=== PATIENT | female | born 1970 | race Caucasian/White ===

== ENCOUNTER 2019-07-27 11:42 | Emergency (ER) | payer BC, SELFPAY ==
[2019-07-27 12:10] LABS: Basophils % 0.1 %; Eosinophils # 0.4 10^3/uL (0.0-0.8); Eosinophils % 4.7 %; Hematocrit 47.3 % (37.0-47.0); Hemoglobin 14.7 g/dL (11.5-15.3); Lymphocytes # 2.5 10^3/uL (0.8-4.8); Lymphocytes % 33.1 %; Mean Corpuscular HGB Conc 31.1 g/dL (30.0-36.0); Mean Corpuscular Hemoglobin 29.6 pg (28.0-34.0); Mean Corpuscular Volume 95.4 fL (81-99); Mean Platelet Volume 9.1 fL (7.4-10.4); Monocytes # 0.3 10^3/uL (0.2-0.9); Monocytes % 4.5 %; Neutrophils # 4.4 10^3/uL (1.8-7.7); Neutrophils % 57.5 %; Nucleated Red Blood Cells % 0 %; Platelet Count 251 10^3/cmm (130-400); Red Blood Count 4.96 10^6/uL (4.1-5.3); Red Cell Distribution Width 13.7 % (12.1-15.1); White Blood Count 7.6 10^3/uL (4.0-10.0)
[2019-07-27 12:15] VITALS: BP 118/81; PULSE 77; RESP 18; TEMP 36.7; O2SAT 98; BMI 39.9
[2019-07-27 12:28] LABS: Alanine Aminotransferase 24 U/L (0-33); Albumin Level 4.1 g/dL (3.5-5.2); Alkaline Phosphatase 92 IU/L (35-105); Anion Gap 15.2 (5-19); Aspartate Amino Transferase 19 U/L (0-32); Blood Urea Nitrogen 17 mg/dL (6-20); Calcium 9.5 mg/dL (8.5-10.5); Carbon Dioxide 23 mmol/L (22-29); Chloride 103 mmol/L (98-107); Glomerular Filtration Rate 88.9 mL/min (90-130); Glucose 110 mg/dL (65-115); Lipase 23 U/L (13-60); Potassium 4.2 mmol/L (3.5-5.1); Sodium 137 mmol/L (136-145); Total Bilirubin 0.2 mg/dL (0.15-1.2); Total Protein 7.1 g/dL (6.6-8.7)
[2019-07-27 12:53] LABS: Add Urine Microscopic? YES; Bilirubin Urine Neg (NEGATIVE); Blood Urine Neg (Negative); Glucose Urine UA Norm (Normal); Ketones Urine Negative (Negative); Leukocyte Esterase Urine Trace (Negative); Nitrate Urine Negative (Negative); Protein Urine Neg (Negative); Urine Appearance Clear (CLEAR); Urine Color Yellow (Yellow); Urobilinogen Urine Norm (Negative)
[2019-07-27 13:04] LABS: Bacteria Urine TRACE; Mucus Urine 2+; Squamous Epithelial Cell Urine 15-25 (0-5); WBC Urine 0-4 /hpf (0-5)
[2019-07-27 13:05] LABS: Add Urine Culture? No
--- NOTE | 2019-07-27 13:08 | ED_ITS ---
Entered by Yara Gonsales, acting as scribe for Jessica Voss MD Jul 27, 2019 11:42 HPI - Abdominal Pain General: Chief Complaint: Abdominal Pain Stated Complaint: flank pain, nausea, abd pain Time Seen by Provider: 07/27/19 13:03 Source: patient and family Mode of arrival: ambulatory Limitations: no limitations History of Present Illness: MD elicited complaint: abdominal pain and flank pain Pertinent past history: other (pancreatitis ) Pain Consistency: constant Location: LLQ and L flank Severity: moderate Quality: sharp Radiation: L flank and back Exacerbating factors: nothing Relieving factors: nothing Associated Symptoms: Denies chills, diarrhea, dysuria, fever(s), nausea and vomiting Review of Systems Const: Denies: fever, chills, body aches or change in appetite Eyes: Denies: blurry vision or eye discomfort ENMT: Denies: throat pain or dental pain Card: Denies: chest pain Resp: Denies: shortness of breath GI: Reports: abdominal pain; Denies: nausea, vomiting or diarrhea : Denies: painful urination Musc: Denies: neck pain or back pain Skin/Breast: Denies: rash Neuro: Denies: headache Psych: Denies: depression [place]/Lymph: Denies: easy bruising All/Imm: Denies: hives PFSH ED PFSH: Social History Smoking and tobacco status: current every day smoker cigarettes Packs smoked per day: 0.5 Alcohol intake: never Physical Exam Const: COMMON NORMALS: no apparent distress, oriented x3 and healthy appearing HENMT: COMMON NORMALS: normocephalic and head/scalp atraumatic HEAD & SC ALP: normocephalic and atraumatic Eye: COMMON NORMALS: PERRL and EOMs intact bilaterally PUPIL: Yes PERRL Neck/C-Spine: COMMON NORMALS: full ROM and supple Chest: COMMONS NORMALS: inspection of chest normal and palpation of chest normal Resp: COMMON NORMALS: normal respiratory effort, no retractions, no use of accessory muscles and clear to auscultation bilaterally AUSCULTATION: clear to auscultation bilaterally Cardio: COMMON NORMALS: regular rate, regular rhythm and no murmurs RATE: regular rate RHYTHM: regular rhythm GI: COMMON NORMALS: normal to inspection, nondistended, normoactive bowel sounds, soft to palpation, non-tender and no masses PALPATION: Yes soft Extremity: COMMON NORMALS: normal to inspection and full ROM Neuro: COMMON NORMALS: oriented x3, moves all extremities and no focal motor deficits Psych: COMMON NORMALS: mental status grossly normal, thought process normal and cooperative THOUGHT PROCESS: normal thought process Skin: COMMON NORMALS: no rashes or lesions noted and no wounds GENERAL SKIN EXAM: no rashes or lesions noted Course Vital Signs: Vital signs: Vital Signs Temperature 98.1 F 07/27/19 12:15 Pulse Rate 76 07/27/19 14:55 Respiratory Rate 17 07/27/19 14:55 Blood Pressure 136/91 07/27/19 14:55 Pulse Oximetry 99 07/27/19 14:55 MDM - Abdominal Pain MDM Narrative: Medical decision making narrative: Patient presents with abdominal pain has chronic abdominal pain from previous pancreatitis. Patient's lipase and CT scan here is normal besides a fat-containing hernia that could be causing her pain. Her pain is much improved here and exam at discharge is benign. She is stable for discharge and is to follow-up with primary care doctor in 3 to 5 days return if worsening. Lab Data: Labs: Lab Results 07/27/19 07/27/19 07/27/19 Range/Units 12:00 12:00 12:33 WBC 7.6 (4.0-10.0) 10^3/ uL RBC 4.96 (4.1-5.3) 10^6/u L Hgb 14.7 (11.5-15.3) g/dL Hct 47.3 H (37.0-47.0) % MCV 95.4 (81-99) fL MCH 29.6 (28.0-34.0) pg MCHC 31.1 (30.0-36.0) g/dL RDW 13.7 (12.1-15.1) % Plt Count 251 (130-400) 10^3/c mm MPV 9.1 (7.4-10.4) fL Neut % (Auto) 57.5 % Lymph % (Auto) 33.1 % Cocke % (Auto) 4.5 % Eos % (Auto) 4.7 % Baso % (Auto) 0.1 % Neut # (Auto) 4.4 (1.8-7.7) 10^3/u L Lymph # (Auto) 2.5 (0.8-4.8) 10^3/u L Cocke # (Auto) 0.3 (0.2-0.9) 10^3/u L Eos # (Auto) 0.4 (0.0-0.8) 10^3/u L Baso # (Auto) 0.0 (0.0-0.1) 10^3/u L Nucleated RBC % (a uto) 0 % Nucleated RBCs # 0.0 /100WBC Sodium 137 (136-145) mmol/L Potassium 4.2 (3.5-5.1) mmol/L Chloride 103 (98-107) mmol/L Carbon Dioxide 23 (22-29) mmol/L Anion Gap 15.2 (5-19) BUN 17 (6-20) mg/dL Creatinine 0.7 (0.5-0.9) mg/dL GFR Calculation 88.9 L (90-130) mL/min Glucose 110 (65-115) mg/dL Calcium 9.5 (8.5-10.5) mg/dL Total Bilirubin 0.2 (0.15-1.2) mg/dL AST 19 (0-32) U/L ALT 24 (0-33) U/L Alkaline Phosphata se 92 (35-105) IU/L Total Protein 7.1 (6.6-8.7) g/dL Albumin 4.1 (3.5-5.2) g/dL Globulin 3.0 (1.3-4.6) g/dL Lipase 23 (13-60) U/L Urine Color Yellow (Yellow) Urine Appearance Clear (CLEAR) Urine pH 5.0 (5-7) Ur Specific Gravit y 1.020 (1.005-1.030) Urine Protein Neg (Negative) Urine Glucose (UA) Norm (Normal) Urine Ketones Negative (Negative) Urine Blood Neg (Negative) Urine Nitrate Negative (Negative) Urine Bilirubin Neg (NEGATIVE) Urine Urobilinogen Norm (Negative) mg/dL Ur Leukocyte Christiane ase Trace H (Negative) Urine RBC None (0-2) /hpf Urine WBC 0-4 H (0-5) /hpf Ur Squamous Epith Cells 15-25 H (0-5) Urine Bacteria Trace (NONE) Urine Mucus 2+ Imaging Data ^: CT Abd/Pel: Radiologist's impression: Ordering Provider/Ordering MD: Jessica Voss MD Date of Service: 07/27/19 Procedure(s): CT abdomen pelvis w con* [id number] Accession Number(s): [id number] Report Number: [id number] PROCEDURE INFORMATION: Exam: CT Abdomen And Pelvis With Contrast Exam date and time: 07/27/2019 1:23 PM Age: 48 years old Clinical indication: Abdominal pain; Periumbilical; Prior surgery; Surgery type: Gb; Patient HX: Kiesha-umbilical and left abd pain TECHNIQUE: Imaging protocol: Computed tomography of the abdomen and pelvis with intravenous contrast. Total DLP: 1852.49 mGy-cm Radiation optimization: All CT scans at this facility use at least one of these dose optimization techniques: automated exposure control; mA and/or kV adjustment per patient size (includes targeted exams where dose is matched to clinical indication); or iterative reconstruction. Contrast material: OMNI 300; Contrast volume: 95 ml; Contrast route: 20G; COMPARISON: No relevant prior studies available. FINDINGS: Liver: Normal. No mass. Gallbladder and bile ducts: Surgical clips in the gallbladder fossa consistent with cholecystectomy. Pancreas: Normal. No ductal dilation. Spleen: Normal. No splenomegaly. Adrenals: Normal. No mass. Kidneys and ureters: Normal. No hydronephrosis. Stomach and bowel: Moderate diverticulosis. Appendix: Normal appendix. Intraperitoneal space: Unremarkable. No free air. No significant fluid collection. Vasculature: Unremarkable. No abdominal aortic aneurysm. Lymph nodes: Unremarkable. No enlarged lymph nodes. Bladder: Unremarkable as visualized. Reproductive: Unremarkable as visualized. Bones/joints: Unremarkable. No acute fracture. Soft tissues: Umbilical/periumbilical hernia containing fat. CT/CT abdomen pelvis w con* [id number] IMPRESSION: 1. Umbilical/periumbilical hernia containing fat. 2. Moderate diverticulosis. Discharge Plan Discharge Patient Disposition: Home, Self-Care Clinical Impression: Abdominal pain Qualifiers: Abdominal location: generalized Qualified Code(s): R10.84 - Generalized abdominal pain Condition: Stable Prescriptions: [place] 5-325 mg tablet 1 tab PO Q6H PRN (Reason: pain) Qty: 10 RF: 0 No Action famotidine 20 mg tablet 20 mg PO DAILY RF: 0 ascorbate calcium (vitamin C) 500 mg tablet 500 mg PO DAILY RF: 0 vitamin B complex [B Complex-Vitamin B12] Tablet 1 tab PO DAILY RF: 0 ranitidine HCl 150 mg Tablet 300 mg PO ONCE RF: 0 naproxen sodium 220 mg Tablet 440 mg PO ONCE RF: 0 Discharge Orders: Discharge Order (Routine); Ordered 07/27/19 Ordered By: Jessica Voss Referrals: Gary Burton DO [Primary Care Provider] - 4-7 days Discharge Diet: Advance as tolerated Discharge Activity: Resume usual activity Patient Instructions: Abdominal Pain (ED) Discharge Date/Time: 07/27/19 14:47 Coding Level of Care Code ED [employer] for Chg Fwd Exam Comprehensive The documentation recorded by the Dru back Bridget Annette, accurately reflects the service I personally performed and the decisions made by Bipin jacobs Korby, MD Jul 27, 2019 11:42
[2019-07-27 13:10] VITALS: RESP 17
--- NOTE | 2019-07-27 13:21 | CTR_ITS ---
PROCEDURE INFORMATION: Exam: CT Abdomen And Pelvis With Contrast Exam date and time: 07/27/2019 1:23 PM Age: 48 years old Clinical indication: Abdominal pain; Periumbilical; Prior surgery; Surgery type: Gb; Patient HX: Kiesha-umbilical and left abd pain TECHNIQUE: Imaging protocol: Computed tomography of the abdomen and pelvis with intravenous contrast. Total DLP: 1852.49 mGy-cm Radiation optimization: All CT scans at this facility use at least one of these dose optimization techniques: automated exposure control; mA and/or kV adjustment per patient size (includes targeted exams where dose is matched to clinical indication); or iterative reconstruction. Contrast material: OMNI 300; Contrast volume: 95 ml; Contrast route: 20G; COMPARISON: No relevant prior studies available. FINDINGS: Liver: Normal. No mass. Gallbladder and bile ducts: Surgical clips in the gallbladder fossa consistent with cholecystectomy. Pancreas: Normal. No ductal dilation. Spleen: Normal. No splenomegaly. Adrenals: Normal. No mass. Kidneys and ureters: Normal. No hydronephrosis. Stomach and bowel: Moderate diverticulosis. Appendix: Normal appendix. Intraperitoneal space: Unremarkable. No free air. No significant fluid collection. Vasculature: Unremarkable. No abdominal aortic aneurysm. Lymph nodes: Unremarkable. No enlarged lymph nodes. Bladder: Unremarkable as visualized. Reproductive: Unremarkable as visualized. Bones/joints: Unremarkable. No acute fracture. Soft tissues: Umbilical/periumbilical hernia containing fat. CT/CT abdomen pelvis w con* [id number] IMPRESSION: 1. Umbilical/periumbilical hernia containing fat. 2. Moderate diverticulosis. Radiation Dose CTDIVOL = (mGy): DLP = 1852.49 (mGy-cm)
[2019-07-27] MEDS: iohexol 300 mg/mL 100 mL Btl IV (13:35)
[2019-07-27 13:42] VITALS: RESP 16
[2019-07-27] MEDS: morphine 4 mg/mL SDV 1 mL IVP (13:42)
[2019-07-27] MEDS: ondansetron 2 mg/ML SDV 2 mL 4 MG IVP (13:42)
[2019-07-27 14:10] VITALS: BP 119/71; PULSE 71; RESP 16; O2SAT 97
[2019-07-27 14:55] VITALS: BP 136/91; PULSE 76; RESP 17; O2SAT 99
== END 2019-07-27 14:47 | disposition home or self-care (01) ==
PROVIDERS: Emergency Provider Emergency Medicine; PCP Family Medicine
DX: R10.9 Unspecified abdominal pain (principal); K42.9 Umbilical hernia without obstruction or gangrene; F17.210 Nicotine dependence, cigarettes, uncomplicated
CPT/HCPCS: 36415; 74177; 80053; 81001; 83690; 85025; 96374; 96375; 99282; 99283; A9270; J2270; J2405; Q9967

== ENCOUNTER → 2020-03-15 15:20 | Outpatient (BNVA) | payer BC, SELFPAY | PROVIDERS: PCP Family Medicine; Visit Provider Nurse Practitioner Family | DX: M25.561 Pain in right knee (principal) | CPT/HCPCS: 73562 ==

== ENCOUNTER 2020-03-19 06:00 | Outpatient (RCR) | payer BC, SELFPAY | END 2020-04-06 23:59 | disposition home or self-care (01) | LOC: GPT 06:00 | PROVIDERS: PCP Family Medicine; Referring Provider Nurse Practitioner Family; Visit Provider Nurse Practitioner Family | DX: S86.911A Strain of unspecified muscle(s) and tendon(s) at lower leg level, right leg, initial encounter (principal); M25.561 Pain in right knee; X58.XXXA Exposure to other specified factors, initial encounter | CPT/HCPCS: 97032; 97110; 97161; 97530 ==